=== PATIENT | female | born 1990 | race Caucasian/White ===

== ENCOUNTER 2017-01-18 13:31 | Emergency (ER) | payer MEDICAID ==
[~2017-01-18] VITALS: Ht 162.6 cm; Wt 88.5 kg
[2017-01-18 17:55] VITALS: BP 125/72
== END 2017-01-18 19:14 | disposition home or self-care (01) ==
LOC: ED 13:31
DX: S32.10XA Unspecified fracture of sacrum, initial encounter for closed fracture (principal); E66.9 Obesity, unspecified; V49.9XXA Car occupant (driver) (passenger) injured in unspecified traffic accident, initial encounter; Y93.89 Activity, other specified; Y92.89 Other specified places as the place of occurrence of the external cause; Y99.8 Other external cause status
CPT/HCPCS: J1170; J1885; J3010; Q0162